=== PATIENT | female | born 1970 | race Caucasian/White ===

== ENCOUNTER → 2017-11-14 | Outpatient (CLI) | payer BC | LOC: FIMAGING 14:01 | PROVIDERS: ATTEND Obstetrics & Gynecology | DX: Z12.31 Encounter for screening mammogram for malignant neoplasm of breast (principal) | CPT/HCPCS: G0202 ==

== ENCOUNTER → 2018-02-06 | Outpatient (CLI) | payer BC | LOC: FIMAGING 12:02 | PROVIDERS: ATTEND Nurse Practitioner Family | DX: R06.02 Shortness of breath (principal); R07.9 Chest pain, unspecified; I77.810 Thoracic aortic ectasia ==

== ENCOUNTER 2019-01-18 22:39 | Emergency (ER) | payer BC ==
[2019-01-18] MEDS ORDERED: LORazepam 2 MG/ML INJ IVP ONE (23:20)
[2019-01-18] MEDS ORDERED: NS 1,000 ML IV ONE (23:20)
[2019-01-18] MEDS ORDERED: HYOSCYAMINE SULFATE 0.125 MG TAB PO ONE (23:21)
[2019-01-18] MEDS ORDERED: MAG HYDROX/AL HYDROX/SIMETH 30 ML UDCUP PO ONE (23:21)
[2019-01-18] MEDS ORDERED: LIDOCAINE 2% VISCOUS 15 ML UDCUP PO ONE (23:21)
--- NOTE | 2019-01-18 23:29 | EDPHY ---
H & P Stated Complaint: Eating salad 2 hours ago, food stuck in throat, N/V, airway patent Time Seen by Provider: 01/18/19 23:18 HPI/ROS: HPI: This is a 48-year-old female who presents with Chief Complaint: Eating salad 2 hours ago, food stuck in throat, airway patent Location: Throat Quality: Foreign body Duration: 2 hr prior to arrival Signs and Symptoms: no fever, no nausea, no vomiting, no hematemesis, no blood in stool, no abdominal bloating, no diarrhea, no back pain, no urinary symptoms , no vaginal bleeding/discharge, no indigestion, no chest pain, no shortness of breath, no drooling Timing: Acute Severity: Mild Context: Patient reports that she was eating in salad when she feels like a piece of the salad is stuck in her upper esophagus. She reports that she induced vomiting in order to try to get the food to move. She denies nausea , fever, drooling, difficulty swallowing, difficulty talking. She reports that she feels like there is a foreign body "scratchy sensation in her throat." She drink some tea without relief of symptoms. Modifying Factors: See above Comment: ROS: A comprehensive 10 system review of systems is otherwise negative aside from elements mentioned in the history of present illness. MEDICAL/SURGICAL/SOCIAL HISTORY: Medical history: Clotting disorder-Factor Leiden X Surgical history: Denies Social history: Never smoked. Family history noncontributory. CONSTITUTIONAL: Polite, middle-aged white female, speaking in complete sentences, awake and alert, no obvious distress HEENT: Atraumatic and normocephalic, PERRL, EOMI. Nares patent; no rhinorrhea; no nasal mucosal edema. Tympanic membranes clear. Oropharynx clear, no postpharyngeal edema, no exudate and moist pink mucosa. Airway patent. No lymphadenopathy. No meningismus. Cardiovascular: Normal S1/S2, regular rate, regular rhythm, without murmur rub or gallop. PULMONARY/CHEST: Symmetrical and nontender. Clear to auscultation bilaterally. Good air movement. No accessory muscle usage. ABDOMEN: Soft, nondistended, nontender, no rebound, no guarding, no peritoneal signs, no masses or organomegaly. No CVAT. EXTREMITIES: 2/2 pulses, strength 5/5, no deformities, no clubbing, no cyanosis or edema. NEUROLOGICAL: no focal neuro deficits. GCS 15. Speech clear. SKIN: Warm and dry, no erythema. no rash. Good capillary refill. Source: Patient Exam Limitations: No limitations - Personal History Current Tetanus/Diphtheria Vaccine: No Current Tetanus Diphtheria and Acellular Pertussis (TDAP): No - Medical/Surgical History Hx Asthma: No Hx Chronic Respiratory Disease: No Hx Diabetes: No Hx Cardiac Disease: No Hx Renal Disease: No Hx Cirrhosis: No Hx Alcoholism: No Hx HIV/AIDS: No Hx Splenectomy or Spleen Trauma: No Other PMH: Clotting disorder-Factor Leiden X - Social History Smoking Status: Never smoked Constitutional: Initial Vital Signs Temperature (C) 36.4 C 01/18/19 22:41 Heart Rate 88 01/18/19 22:41 Respiratory Rate 18 01/18/19 22:41 Blood Pressure 140/97 H 01/18/19 22:41 O2 Sat (%) 99 01/18/19 22:41 O2 Delivery Mode Room Air Allergies/Adverse Reactions: codeine [Codeine] Allergy (Verified 01/18/19 22:40) Itching warfarin sodium [From Coumadin] Allergy (Verified 01/18/19 22:40) Itching EGGPLANT Allergy (Uncoded 01/18/19 22:40) ITCHY MOUTH Home Medications: Medication Instructions Recorded NK [No Known Home Meds] 12/07/13 Medical Decision Making ED Course/Re-evaluation: Vital signs reviewed and stable upon arrival. IV access obtained and patient given 1 L normal saline, IV Ativan 1 mg and GI cocktail. No signs of hypoxia, respiratory distress, airway compromise Abdomen is soft and nontender. Doubt surgical process or need for imaging. After 1.5 hr in the emergency room, patient reports relief of symptoms, reassessed and drinking and talking without difficulty. Patient will be discharged home with Gastroenterology follow-up outpatient as needed. This patient was seen under the supervision of my secondary supervising physician. I evaluated care for this patient with attending. Discussed this patient with Dr. Neville. Differential Diagnosis: Differential diagnosis includes but is not limited to esophageal irritation, foreign body, fluid bolus, esophageal perforation. - Data Points Medications Given: Discontinued Medications Al Hydroxide/Mg Hydroxide (Maalox Susp) 30 ml PO ONCE ONE Stop: 01/18/19 23:22 Last Admin: 01/18/19 23:27 Dose: 30 ml Hyoscyamine Sulfate (Levsin, Hyomax-Sl) 0.25 mg PO ONCE ONE Stop: 01/18/19 23:22 Last Admin: 01/18/19 23: Dose: 0.25 mg Sodium Chloride (Ns) 1,000 mls @ 0 mls/hr IV EDNOW ONE; Wide Open PRN Reason: Protocol Stop: 01/18/19 23:21 Last Admin: 01/18/19 23:29 Dose: 1,000 mls Lidocaine (Lidocaine 2% Viscous) 15 ml PO ONCE ONE Stop: 01/18/19 23:22 Last Admin: 01/18/19 23: Dose: 15 ml Lorazepam (Ativan Injection) 1 mg IVP EDNOW ONE Stop: 01/18/19 23:21 Last Admin: 01/18/19 23: Dose: 1 mg Departure - Departure Disposition: Home, Routine, Self-Care Clinical Impression: Esophageal abrasion Qualifiers: Encounter type: initial encounter Qualified Code(s): S27.818A - Other injury of esophagus (thoracic part), initial encounter Condition: Good Instructions: Foreign Body in Pharynx (ED) Additional Instructions: Consume a minimum of 8-10 glasses of water or electrolyte fluid replacement drinks that include Gatorade, Powerade, Pedialyte. Eat a bland diet for the next 48 hours and then slowly advance as tolerated. Please call Gastroenterology in the morning for outpatient follow-up. Return to the Emergency Room if symptoms do not resolve in the next 72 hours, you spike a fever > 102 F, or experience intractable abdominal pain/nausea/ vomiting. Referrals: Davina Leal MD [Medical Doctor] - As per Instructions
[2019-01-19 00:19] VITALS: BP 132/68
== END 2019-01-19 00:18 | disposition home or self-care (01) ==
DX: S27.818A Other injury of esophagus (thoracic part), initial encounter (principal); E86.9 Volume depletion, unspecified
CPT/HCPCS: 96374; J2060